=== PATIENT | female | born 1975 | race Caucasian/White ===

== ENCOUNTER 2018-06-07 14:15 | Outpatient (REF) | payer OTHER, SELFPAY | END 2018-06-07 14:16 | LOC: LBN 14:15 | PROVIDERS: PCP Nurse Practitioner; Visit Provider Obstetrics & Gynecology | DX: R30.0 Dysuria (principal) | CPT/HCPCS: 87086 ==

== ENCOUNTER 2021-01-20 19:39 | Outpatient (REF) | payer OTHER, SELFPAY ==
[2021-01-20 22:11] LABS: Hemoglobin A1C 5.5 % (<5.7)
[2021-01-20 22:19] LABS: Anion Gap 11.6 mmol/L (3-11); BUN 17 mg/dL (7-18); CO2 26.4 mmol/L (21.0-32.0); CREATININE 0.8 mg/dL (0.55-1.02); Calcium 9.1 mg/dL (8.5-10.1); Calculated LDL 134 mg/dL (<100); Chloride 104 mmol/L (98-107); Cholesterol 236 mg/dL (<200); Glucose 103 mg/dL (74-106); HDL Cholesterol 48 mg/dL (40-60); Sodium 142 mmol/L (136-145); TSH (W/Ref FT4) 1.02 uIU/mL (0.36-3.74); Triglyceride 272 mg/dL (<150)
== END 2021-01-20 19:40 | disposition home or self-care (01) ==
LOC: NCHCN 19:39
PROVIDERS: PCP Nurse Practitioner; Visit Provider Family Medicine
DX: Z13.220 Encounter for screening for lipoid disorders (principal); I10 Essential (primary) hypertension; Z86.32 Personal history of gestational diabetes
CPT/HCPCS: 80048; 80061; 83036; 84443

== ENCOUNTER 2021-05-22 17:08 | Outpatient (REF) | payer OTHER, SELFPAY | END 2021-05-22 17:09 | disposition home or self-care (01) | LOC: LBN 17:08 | PROVIDERS: PCP Nurse Practitioner; Visit Provider Physician Assistant Medical | DX: R10.30 Lower abdominal pain, unspecified (principal) | CPT/HCPCS: 87077; 87086; 87186 ==

== ENCOUNTER 2023-05-15 13:35 | Emergency (ER) | payer OTHER, SELFPAY ==
--- NOTE | 2023-05-15 | DI.CT_ITS ---
Exam(s) CT LOWER EXTREMITY LT WO EXAM: CT LOWER EXTREMITY LT WO CLINICAL HISTORY: eval midfoot fractures, lisfranc injury. TECHNIQUE: Imaging Protocol: Axial computed tomography images with coronal and sagittal reformatted images were created and reviewed. CONTRAST MATERIAL: Intravenous: Omnipaque 350 Contrast volume:structured data in ml Contrast route:IV - COMPARISON: CR,XR XR ANKLE LT COMPLETE from 05/15/2023 CR,XR XR FOOT LT COMPLETE from 05/15/2023 FINDINGS: Bones: There is a markedly comminuted fracture at the base of the 2nd metatarsal. A tiny fracture fr agment seen at the inferior aspect of the 2nd cuneiform. Small fracture is noted at the lateral aspe ct the 3rd cuneiform and lateral aspect of the cuboid. Small fracture fragment from the infra medial base of the 4th metatarsal. Joints: Bony alignment is satisfactory. No evidence of Lisfranc joint disruption. No cellulitic or o steomyelitic changes are identified. There is no joint space narrowing or cystic degeneration seen. No lytic or sclerotic lesions are identified. Soft Tissues: Swelling greatest at dorsum of foot. IMPRESSION: Markedly comminuted fracture at the base of the 2nd metatarsal. Small fracture fragments also noted at the distal 2nd cuneiform, lateral 3rd cuneiform and lateral cuboid. Small fracture inferomedial b ase the 4th metatarsal. RADIATION DOSE DELIVERED: 294.31mGy.cm Total DLP DATA REPOSITORY: All CT scans at this facility are submitted to the National Radiology Data Registry (NRDR) Dose Index Registry (DIR) with the [employer] (A[employer]). RADIATION OPTIMIZATION: All CT scans at this facility use at least one of these dose optimization te chniques: automated exposure control; mA and/or kV adjustment per patient size (includes targeted exa ms where dose is matched to clinical indication); or iterative reconstruction.
[2023-05-15 13:43] VITALS: BP 127/74; PULSE 85; RESP 18; TEMP 36.6; O2SAT 97
--- NOTE | 2023-05-15 15:00 | DI.RAD_ITS ---
Exam(s) XR ANKLE LT COMPLETE EXAM: XR ANKLE LT COMPLETE . CLINICAL HISTORY: Fall, lateral swelling. TECHNIQUE: 2D digital imaging was performed. COMPARISON: No exams were available for comparison FINDINGS: 3 views there is no evidence of ankle fracture or widening of the ankle mortise. Talar dome unremarkable. There is a comminuted fracture of the base the 2nd metatarsal noted. Lisfranc joint area. IMPRESSION: Lisfranc joint fracture base of 2nd metatarsal. See separate foot film dictation. No fracture seen at the level of the ankle. DATA REPOSITORY: RADIATION DOSE DELIVERED:
--- NOTE | 2023-05-15 15:00 | DI.RAD_ITS ---
Exam(s) XR FOOT LT COMPLETE EXAM: XR FOOT LT COMPLETE CLINICAL HISTORY: Fall lateral foot pain. TECHNIQUE: 2D digital imaging was performed. COMPARISON: No exams were available for comparison FINDINGS: 3 views There is comminuted fracture of the base of the 2nd metatarsal. This is Lisfranc joint. Possible reeves btle fracture of the adjacent base of the 3rd metatarsal. Other metatarsals appear intact, including the great toe metatarsal. Cannot exclude adjacent middle cuneiform fracture. Overlying soft tissue swelling noted. IMPRESSION: Lisfranc joint fracture/comminuted fracture base of the 2nd metatarsal. Also suspect more subtle fra cture of the base of the 3rd metatarsal. Cannot exclude adjacent middle and lateral cuneiform fractu res. DATA REPOSITORY: RADIATION DOSE DELIVERED:
--- NOTE | 2023-05-15 15:13 | ED.GENADUL_ITS ---
Discharge Plan Discharge Details Chief Complaint: Orthopedic Primary Care Provider: Unknown,Unknown ED Provider: Armando Cade Home Meds and New Rx's Prescriptions: No Action Advil PM Liqui-Gels 200-25 mg capsule 1 cap PO QHS PRN melatonin 3 mg capsule 9 mg PO HS PRN mirtazapine 30 mg tablet 30 mg PO QHS Qty: 90 2RF lisinopril 40 mg tablet 40 mg PO DAILY Qty: 90 3RF amitriptyline 10 mg tablet 10 mg PO QHS Qty: 90 4RF pregabalin 75 mg capsule 75 mg PO DAILY Qty: 90 4RF Medical Decision Making Patient presenting to the emergency department for chief complaint of left ankle injury. She states that she was getting out of bed and starting to walk when she had a significant inversion injury to the left foot and ankle. Patient denies any other injury or trauma, syncope, head injury open wounds. Physical exam shows significant lateral ankle swelling with diffuse soft tissues tenderness, tenderness to the fifth metatarsal specifically at the base pulses are normal intact, normal intact cap refill, painful but full range of motion of foot, due to patient reporting severe pain she is unwilling to perform any range of motion of the ankle at this time. We will give patient ibuprofen and perform radiological imaging. HPI General Mode of arrival: wheelchair . Date/Time Provider Initiated Documentation: 05/15/23 15:05 . Limitations to Documentation: no limitations . Information obtained by: patient and RN notes reviewed . History of Present Illness 48 year old F presents to the emergency department with the chief complaint of Left foot and ankle injury, described as moderate and severe, with intensity rated at 8. Quality is described as sharp, and is localized to the left and lower extremity. Patient reports no radiation. Patient started experiencing this hour(s) (6) and it has been constant. No relieving factors improve symptom(s), No exacerbating factors reported . Patient notes no other symptoms.. Patient did receive the following treatments prior to ar rival, none Related Data Home Medications Medication Instructions Recorded Confirmed ibuprofen 200 mg-diphenhydramine 1 cap PO QHS PRN 09/15/21 HCl 25 mg capsule (Advil PM Liqui-Gels) melatonin 3 mg capsule 9 mg PO HS PRN 09/15/21 lisinopril 40 mg tablet 40 mg PO DAILY #90 tabs 12/14/21 mirtazapine 30 mg tablet 30 mg PO QHS #90 tabs 12/14/21 amitriptyline 10 mg tablet 10 mg PO QHS #90 tabs 12/13/22 pregabalin 75 mg capsule 75 mg PO DAILY #90 caps 01/14/23 Previous Rx's Medication Instructions Recorded lisinopril 40 mg tablet 40 mg PO DAILY #90 tabs 12/14/21 mirtazapine 30 mg tablet 30 mg PO QHS #90 tabs 12/14/21 amitriptyline 10 mg tablet 10 mg PO QHS #90 tabs 12/13/22 pregabalin 75 mg capsule 75 mg PO DAILY #90 caps 01/14/23 Allergies Allergy/AdvReac Type Severity Reaction Status Date / Time No Known Drug Allergies Allergy Verified 09/03/21 11:33 duloxetine [From Cymbalta] AdvReac Intermediate dizzy, Verified 09/15/21 14:24 nausea, headache General Stated Complaint: Orthopedic MONICA: 3 Review of Systems Constitutional Constitutional: Denies headache(s) ENT Ears, Nose, Mouth, and Throat: Denies headache(s) Cardiovascular Cardiovascular: Denies syncope Musculoskeletal Musculoskeletal: Reports as per HPI, Reports arthralgias, Reports joint swelling and Reports limited range of motion Integumentary/Breasts Skin/Breast: Denies wounds Neurologic Neurologic: Denies syncope, Denies headache(s) and Denies paresthesias PFSH All Active Problems SARS-CoV-2 positive (Acute ~07/2022) Hx gestational diabetes (Acute 03/03/18) Bladder pain (Acute) Dysuria (Acute) Depression (Chronic 04/08/17) Scoliosis (Acute 04/08/17) Plantar fasciitis (Acute 04/08/17) HTN (hypertension) (Acute 06/21/17) CEM (generalized anxiety disorder) (Acute 05/09/17) Fibromyalgia (Acute 04/08/17) Elevated LDL cholesterol level (Acute 04/08/17) Chronic low back pain (Acute 04/08/17) Chronic constipation (Acute 08/26/17) Medical History Arthritis of right knee BMI 45.0-49.9, adult Bullous pemphigoid (03/02/18) resolved. with p.o. steroids Fibromyalgia Hx gestational diabetes Hypertension Insulin dependent gestational diabetes mellitus (GDM), antepartum (08/30/17) Pemphigoid (01/24/18) 2018. Rx with steriods. No sequelae. Recurrent cystitis Surgical History section 1994, x3 1998, 2001, 2018 Family History Mother MVP (mitral valve prolapse) Father Diabetes Borderline Essential hypertension Paternal Grandfather , Heart Attack Essential hypertension Heart disease Sister Diabetes Borderline Grandfather Neoplasm prostate Social History Smoking/Tobacco Use Status: Never Smoking risk assessment performed?: Yes Alcohol Intake: never Drug use: Never Substance use type: does not use Number of Children: 3 Seatbelt use: always Drive intox or ride w/intox drivers license examiner: No Working smoke detector in home: Yes Fire extinguisher in home: Yes Carbon monox detector in home: Yes Do you feel safe in your relationship?: Yes Exam Const General: cooperative, no acute distress and not ill appearing Orientation: alert, awake and oriented x3 HENMT Mouth: moist mucous membranes Resp Effort & Inspection: normal respiratory effort, able to speak in complete sentences and no respiratory distress Cardio Rate: regular rate Rhythm: regular rhythm Pulses: normal peripheral pulses Skin General skin exam: no rashes or lesions noted Neuro General: patient alert, patient awake, patient oriented x3, moves all extremities and no focal motor deficits Sensory Exam: no sensory deficits noted Extrem General: normal exam except as noted Left lower extremity: ankle Details: tenderness Location: of the lateral malleolus and anterolaterally, swelling Details: laterally and abnormal ROM Details: pain with active ROM and foot Details: tenderness Location: of the base of the 5th metatarsal and abnormal ROM of toe (full ROM but painful) Details: pain with active ROM; no abrasions, no lacerations and no ecchymosis Course Vital Signs Vital signs: Vital Signs Temperature 36.6 C 05/15/23 13:43 Pulse 85 05/15/23 13:43 Respiratory Rate 18 05/15/23 13:43 Blood Pressure 127/74 05/15/23 13:43 Pulse Oximetry 97 05/15/23 13:43 Temperature 36.6 C 05/15/23 13:43 Temperature Source Oral 05/15/23 13:43 Pulse 85 05/15/23 13:43 Respiratory Rate 18 05/15/23 13:43 Blood Pressure 127/74 05/15/23 13:43 Pulse Oximetry 97 05/15/23 13:43 Oxygen Delivery Method Room Air 05/15/23 13:43 Oxygen Flow Rate 0 05/15/23 13:43 Pain Level 5 05/15/23 13:43 Sign Out Sign Out Data: Sign Out Comment: Patient signed out pending radiologist interpretation of imaging, interventions and treatments as needed and and disposition Last updated by Armando Cade NP at 05/15/23 15:37
[2023-05-15] MEDS: Ibuprofen 600 MG TAB PO (15:15)
--- NOTE | 2023-05-15 15:57 | DI.VRAD_ITS ---
PROCEDURE INFORMATION: Exam: XR Left Foot Exam date and time: 05/15/2023 3:31 PM Age: 48 years old Clinical indication: Left; Patient HX: Fall, lateral foot pain TECHNIQUE: Imaging protocol: Radiologic exam of the left foot. Views: 3 or more views. COMPARISON: No relevant prior studies available. FINDINGS: Bones/joints: There appears to be a comminuted impacted fracture of the base of the 2nd metatarsal as well as 3rd metatarsal involvement proximally. Third cuneiform involvement is not excludable. Soft tissues: There is fairly diffuse soft tissue swelling particularly involving the dorsal level. IMPRESSION: Fractures of the base of the 2nd and 3rd metatarsal bones with possible 3rd cuneiform involvement. Dictated and Authenticated by: Lashon Bustillos MD. Ordering:SHIRA Roberts MD
--- NOTE | 2023-05-15 16:02 | DI.VRAD_ITS ---
PROCEDURE INFORMATION: Exam: XR Left Ankle Exam date and time: 05/15/2023 3:32 PM Age: 48 years old Clinical indication: Pain; Ankle; Left; Patient HX: Fall, lateral swelling TECHNIQUE: Imaging protocol: Radiologic exam of the left ankle. Views: 3 or more views. COMPARISON: CR XR FOOT LT COMPLETE 05/15/2023 3:31 PM FINDINGS: Bones/joints: There are fractures of the 2nd and apparently 3rd metatarsals proximally. Fifth metatarsal fractures suspected. The ankle is intact without evidence for fracture. The distal fibula is not optimally characterized due to bony overlap. Soft tissues: Normal. IMPRESSION: Fractures of the 2nd 3rd and possibly 5th metatarsals. No definite evidence for ankle fracture. Dictated and Authenticated by: Lashon Bustillos MD. Ordering:SHIRA Roberts MD
--- NOTE | 2023-05-15 17:22 | DI.VRAD_ITS ---
PROCEDURE INFORMATION: Exam: CT Left Lower Extremity With Contrast, Foot Exam date and time: 05/15/2023 5:04 PM Age: 48 years old Clinical indication: Other: Eval midfoot fractures, lisfranc injury TECHNIQUE: Imaging protocol: CT of the left lower extremity with intravenous contrast was performed. Exam focused on the foot. Radiation optimization: All CT scans at this facility use at least one of these dose optimization techniques: automated exposure control; mA and/or kV adjustment per patient size (includes targeted exams where dose is matched to clinical indication); or iterative reconstruction. COMPARISON: CR XR FOOT LT COMPLETE 05/15/2023 3:31 PM FINDINGS: Bones/joints: Alignment is grossly anatomic without evidence for Lisfranc disruption. There are fractures of the base of the 2nd metatarsal with marked comminution. There is a fracture of the lateral aspect of the 3rd cuneiform, probable subtle 4th metatarsal avulsion fracture and minimal fracture of the cuboid, avulsion type. Soft tissues: There is soft tissue swelling in the dorsum of the foot. IMPRESSION: Multiple fractures particularly involving the base of the 2nd metatarsal with 3rd cuneiform, 4th metatarsal and cuboid involvement. No evidence for Lisfranc dislocation. Dictated and Authenticated by: Lashon Bustillos MD. Ordering:JONI Haynes MD
--- NOTE | 2023-05-21 15:05 | NUR.NOTE ---
Nursing Note: Nani Rosenberg called asking if there was a prescription in chart for opiates. They have one there, but have a message that it was cancelled. Reviewed the chart with Nettie Luna RN and there is no prescription for opiates in the chart. She was dispensed with 4 from ED only. They will tell here that they do not have a prescription there.
== END 2023-05-15 18:24 | disposition home or self-care (01) ==
PROVIDERS: Emergency Provider Physician Assistant
DX: S92.322A Displaced fracture of second metatarsal bone, left foot, initial encounter for closed fracture (principal); S92.332A Displaced fracture of third metatarsal bone, left foot, initial encounter for closed fracture; S92.352A Displaced fracture of fifth metatarsal bone, left foot, initial encounter for closed fracture; X58.XXXA Exposure to other specified factors, initial encounter
CPT/HCPCS: 99284; 73610; 73630; 73700

== ENCOUNTER 2023-05-19 10:08 | Outpatient (CLI) | payer OTHER, SELFPAY ==
[2023-05-19 10:23] LABS: Abs Immature Grans 0.18 10^3/uL (0.0-0.06); Absolute Basophil Count 0.07 10^3/uL (0.0-0.2); Absolute Lymphocyte Count 2.15 10^3/uL (1.2-3.4); Absolute Monocyte Count 0.51 10^3/uL (0.1-0.8); Absolute Neutrophil Count 5.82 10^3/uL (1.2-6.7); Basophils % 0.8; Eosinophils % 2.2; HGB 12.2 g/dL (11.2-15.7); Lymphocytes % 24.1; MCH 27.9 pg (27.0-33.0); MCHC 32.1 % (32.0-36.0); MCV 87 fL (80-95); Monocytes % 5.7; Neutrophils % 65.2; Platelet Count 544 10^3/uL (130-400); RBC 4.38 10^6/uL (3.93-5.22); RDW 14.2 % (11.7-14.6); WBC 8.93 10^3/uL (4.4-10.8)
[2023-05-19 10:49] LABS: ALT 18 U/L (14-59); AST 19 U/L (15-37); Albumin 3.4 g/dL (3.4-5.0); Alkaline Phosphatase 79 U/L (46-116); Anion Gap 11.9 mmol/L (3-11); BUN 22 mg/dL (7-18); Bilirubin, Total 0.4 mg/dL (0.2-1.0); CO2 25.1 mmol/L (21.0-32.0); CREATININE 1.2 mg/dL (0.55-1.02); Calcium 9.4 mg/dL (8.5-10.1); Calculated LDL 153 mg/dL (<100); Chloride 104 mmol/L (98-107); Cholesterol 219 mg/dL (<200); Estimated GFR 55.84 (mL/min/1.73m2); Glucose 111 mg/dL (74-106); HDL Cholesterol 33 mg/dL (40-60); Sodium 141 mmol/L (136-145); Total Protein 7.9 g/dL (6.4-8.2); Triglyceride 168 mg/dL (<150)
== END 2023-05-19 10:09 | disposition home or self-care (01) ==
LOC: LBO 10:08
PROVIDERS: PCP Family Medicine; Visit Provider Family Medicine
DX: Z00.00 Encounter for general adult medical examination without abnormal findings (principal); K21.9 Gastro-esophageal reflux disease without esophagitis; I10 Essential (primary) hypertension; F41.8 Other specified anxiety disorders; M79.7 Fibromyalgia
CPT/HCPCS: 36415; 80053; 80061; 85025

== ENCOUNTER 2023-06-03 09:48 | Outpatient (CLI) | payer OTHER, SELFPAY ==
--- NOTE | 2023-06-03 11:24 | DI.RAD_ITS ---
Exam(s) XR FOOT LT COMPLETE EXAM: XR FOOT LT COMPLETE CLINICAL HISTORY: LEFT FOOT FX. TECHNIQUE: 2D digital imaging was performed. COMPARISON: CR,XR XR FOOT LT COMPLETE from 05/15/2023 FINDINGS: 3 views Fracture site at the base of the 2nd metatarsal is again noted. On the oblique view there is a suggestion of some further displacement of the lateral fracture fragme nt at this level. Cannot exclude fracture of the base of the adjacent 3rd metatarsal. No diastasis of the Lisfranc joint evident. Bases of the 4th and 5th metatarsals are intact and not dislocated re lative to the articulation with the adjacent cuboid. IMPRESSION: As above. Recommend follow-up CT scan for new knee a faria of position of fracture fragments at the 2 nd and 3rd tarsometatarsal joints. DATA REPOSITORY: RADIATION DOSE DELIVERED:
== END 2023-06-03 09:49 | disposition home or self-care (01) ==
LOC: DIORS 09:48
PROVIDERS: PCP Family Medicine; Referring Provider Family Medicine; Visit Provider Student in an Organized Health Care Education/Training Program
DX: S92.321A Displaced fracture of second metatarsal bone, right foot, initial encounter for closed fracture (principal); X58.XXXA Exposure to other specified factors, initial encounter
CPT/HCPCS: 73630

== ENCOUNTER 2023-07-01 12:00 | Outpatient (CLI) | payer OTHER, SELFPAY ==
--- NOTE | 2023-07-01 11:50 | DI.RAD_ITS ---
Exam(s) XR FOOT LT COMPLETE EXAM: XR FOOT LT COMPLETE CLINICAL HISTORY: eval L Lisfranc frx. TECHNIQUE: 2D digital imaging was performed of the left foot. Three images were obtained. AP, obli que and lateral views were obtained. COMPARISON: CR XR FOOT LT COMPLETE from 06/03/2023 FINDINGS: BONES: There is again seen a fracture through the base of the 2nd metatarsal. There is displacement of the fracture which appears similar compared to the examination from 06/03/2023. There also fracture fragments seen near the distal aspects of the 2nd and 3rd cuneiforms. No bony destructive lesion is seen. JOINTS: No dislocation present. SOFT TISSUE: There is soft tissue swelling of the foot. IMPRESSION: The visualized fractures through the cuneiform and the base of the 2nd metatarsal appears stable. DATA REPOSITORY: RADIATION DOSE DELIVERED:
== END 2023-07-01 12:01 | disposition home or self-care (01) ==
LOC: DIORS 12:03
PROVIDERS: PCP Family Medicine; Referring Provider Family Medicine; Visit Provider Student in an Organized Health Care Education/Training Program
DX: S92.321A Displaced fracture of second metatarsal bone, right foot, initial encounter for closed fracture (principal); X58.XXXA Exposure to other specified factors, initial encounter; Z47.89 Encounter for other orthopedic aftercare
CPT/HCPCS: 73630

== ENCOUNTER 2023-08-05 11:20 | Outpatient (CLI) | payer OTHER, SELFPAY ==
--- NOTE | 2023-08-05 11:15 | DI.RAD_ITS ---
Exam(s) XR FOOT LT COMPLETE EXAM: XR FOOT LT COMPLETE CLINICAL HISTORY: f/u L FT FX. TECHNIQUE: 2D digital imaging was performed. Three views. COMPARISON: CT CT LOWER EXTREMITY LT WO from 05/15/2023 CR XR FOOT LT COMPLETE from 06/03/2023 CR XR FOOT LT COMPLETE from 07/01/2023 FINDINGS: There has been no change in the alignment of the fractures of the bases of the 2nd through 4th metata rsals. There is some disuse osteopenia in this region. No new findings. There has been some increa sed healing from prior exam. DATA REPOSITORY: RADIATION DOSE DELIVERED:
== END 2023-08-05 11:21 | disposition home or self-care (01) ==
LOC: DIORS 11:20
PROVIDERS: PCP Family Medicine; Visit Provider Student in an Organized Health Care Education/Training Program
DX: S92.321D Displaced fracture of second metatarsal bone, right foot, subsequent encounter for fracture with routine healing (principal); X58.XXXD Exposure to other specified factors, subsequent encounter
CPT/HCPCS: 73630

== ENCOUNTER 2023-09-15 11:04 | Outpatient (CLI) | payer OTHER, SELFPAY ==
--- NOTE | 2023-09-15 11:00 | DI.RAD_ITS ---
Exam(s) XR FOOT LT COMPLETE EXAM: XR FOOT LT COMPLETE CLINICAL HISTORY: left foot fracture. TECHNIQUE: 2D digital imaging was performed. Three views. COMPARISON: CR XR FOOT LT COMPLETE from 08/05/2023 FINDINGS: BONES: There has been no change in the alignment of the fracture at the base of the 2nd metatarsal. Disuse osteopenia. No bony destructive lesion is seen. JOINTS: No dislocation present. SOFT TISSUE: Dorsal swelling. IMPRESSION: Stable fracture alignment. DATA REPOSITORY: RADIATION DOSE DELIVERED:
== END 2023-09-15 11:05 | disposition home or self-care (01) ==
LOC: DIORS 11:04
PROVIDERS: PCP Family Medicine; Visit Provider Physician Assistant
DX: S92.322D Displaced fracture of second metatarsal bone, left foot, subsequent encounter for fracture with routine healing (principal); X58.XXXD Exposure to other specified factors, subsequent encounter
CPT/HCPCS: 73630

== ENCOUNTER → 2024-04-23 01:53 | Outpatient (CLI) | payer OTHER, SELFPAY ==
--- NOTE | 2024-04-23 | DI.RAD_ITS ---
Exam(s) XR CHEST 2V PA LATERAL EXAM: XR CHEST 2V PA LATERAL CLINICAL HISTORY: CHEST PAIN, R07.9 TECHNIQUE: 2D digital imaging was performed. Two views. COMPARISON: No exams were available for comparison FINDINGS: HEART: Normal size. Aorta: Not dilated. PULMONARY VASCULATURE: Normal. MEDIASTINUM: Unremarkable. LUNGS: Clear. PLEURAL SPACE: No pleural effusion or pneumothorax. BONE:Unremarkable for age. SOFT TISSUES: Unremarkable. IMPRESSION: No acute abnormality. DATA REPOSITORY: RADIATION DOSE DELIVERED:
--- NOTE | 2024-04-23 | DI.MAMMO_ITS ---
Exam(s) MAMMO SCREENING EXAM: MAMMO SCREENING CLINICAL HISTORY: SCREENING, Z12.31 TECHNIQUE: Mammograms were interpreted according to the usual protocol including computer analysis w Volve CAD system, tomosynthesis and C-view imaging. COMPARISON: No exams were available for comparison. Baseline examination. FINDINGS: The breasts are composed of scattered fibroglandular densities, Breast Density category B. No suspicious masses or suspicious microcalcifications are seen. No skin thickening or abnormal axillary lymph nodes are seen. IMPRESSION: BI-RADS Category 1, Negative mammogram Yearly screening mammography is recommended. Breast Density - Category B, scattered fibroglandular densities. A negative radiographic report should not delay biopsy if a dominant or clinically suspicious mass is present. Up to ten percent of cancers are not identified on mammography. A negative report may reinforce clinical impression. Adenosis and dense breasts may obscure an underlying neoplasm. False positive reports average 6 to 10%. Patient will receive a letter notifying them of these results.
--- NOTE | 2024-04-23 18:41 | DI.VRAD_ITS ---
PROCEDURE INFORMATION: Exam: XR Chest Exam date and time: 04/23/2024 5:42 PM Age: 49 years old Clinical indication: Chest wall pain; Patient HX: Chest pain TECHNIQUE: Imaging protocol: Radiologic exam of the chest. Views: 2 views. COMPARISON: No relevant prior studies available. FINDINGS: Lungs: Normal pulmonary expansion. Pulmonary vasculature grossly normal. No gross pulmonary infiltrates or edema pattern. Pleural spaces: No pleural effusion. No pneumothorax. Heart/Mediastinum: Heart size normal. No tracheal/mediastinal shift. Bones/joints: No acute osseous abnormalities are identified. Moderate thoracic spondylosis. IMPRESSION: No acute thoracic process. Dictated and Authenticated by: Néstor Sampson MD. Ordering:ELLIS Rosenthal MD
== END ==
PROVIDERS: PCP Family Medicine; Visit Provider Family Medicine
DX: R07.9 Chest pain, unspecified (principal); Z12.31 Encounter for screening mammogram for malignant neoplasm of breast
CPT/HCPCS: 77063; 77067; 71046

== ENCOUNTER 2024-09-26 15:47 | Outpatient (REF) | payer OTHER, SELFPAY ==
--- OUTSIDE RECORDS SUMMARY | 2024-09-26 16:00 | XMS_ITS | Encounter Summary ---
Author Organization [facility] [place] [address] Care Team Providers Care Yarding Engineer Name Role Phone Amelia Dillardyce Opal CABRAL Primary Care Provider [phone] Reason for Visit * Reason Onset Date Comments Results 08/11/2017 Encounter Details Date Type Department Care Team (Late st Contact Info) Description 08/11/2017 Telephone Obstetrics [place] [id number] Leena Chao, [facility] DR OBSTETRICS & [place] [address] Results Social History Tobacco Use Types Packs/Day Years Used Date Smoking Tobacco: Unknown Smokeless Tobacco: Never Comments Yes Sex and Gender Information Value Date Recorded Sex Assigned at Not on file Gender Identity Not on file Sexual Orientation Not on file documented as of this encounter Miscellaneous Notes * Telephone Encounter - Leena Chao, [facility] - 08/11/2017 9:08 AM EDT Genetic Counseling Telephone Note Renee St opted for cell-free DNA aneuploidy screening with the Fargo Test on 2016. I informed Renee St of the following results by phone today: Fargo Test: Condition Result Probability Trisomy 21 Low risk Less than 1/10,000 Trisomy 18 Low risk Less than 1/10,000 Trisomy 13 Low risk Less than 1/10,000 Monosomy X Sex Chromosome Aneuploidy Panel Low risk Less than 1/100 Sex Male >99% The Fargo Test is a type of cell-free DNA screening for aneuploidy. I reminded Renee that Fargo is a screening test for a limited number of chromosomes and that amniocentesis remains anoption as the diagnostic test for chromosome abnormalities. She declines diagnostic testing at this time. Renee was also advised to discuss a morphology ultrasound at 18 to 20 weeks withher provider, and to correlate sex. The laboratory report will be scanned into [facility]. A letter will be mailed to the referring provider's office with a copy of the report. documented in this encounter Plan of Treatment Not on file documented as of this encounter Visit Diagnoses Not on filedocumented in this encounter Care Teams Yarding Engineer Relationship Specialty Start Date End Date Ayaka Dillard APRN [address] [place] [address] PCP - General Internal Medicine 08/04/17 documented as of this encounter
--- OUTSIDE RECORDS SUMMARY | 2024-09-26 16:00 | XMS_ITS | Clinical Summary ---
Author Organization [facility] Address [facility] [place] [address] Care Team Providers Care Master Printer Name Role Phone Ayaka Dillard APRN Primary Care Provider [phone] Allergies No known active allergies Medications Medication Sig Dispensed Refills Start Date End Date Status labetalol (NORMODYNE) 100 mg Tablet 3 07/07/2017 Active PHENADOZ 25 mg Suppository 2 07/27/2017 Active metFORMIN (GLUCOPHAGE) 1,000 mg Tablet Take 1,000 mg by mouth 2 times daily (with meals). Active vitamin with orkligtl-Xg-[id number]-FA Tablet Take by mouth. Active ondansetron (ZOFRAN) 4 mg Tablet Take 4 mg by mouth every 8 hours as needed for Nausea. Active promethazine (PHENERGAN) 25 mg Tablet Take 25 mg by mouth every 6 hours as needed for Nausea. Active metFORMIN (GLUCOPHAGE) 500 mg Tablet Take 1 tablet by mouth 2 times daily (with meals). 60 tablet 12 08/04/2017 Active Additional Information Patient not taking.Reported on 01/23/2018 gabapentin (NEURONTIN) 400 mg Capsule 01/05/2018 Active ibuprofen (ADVIL;MOTRIN) 600 mg Tablet TAKE ONE TABLET EVERY 6 HOURS NEEDED FOR ABDOMINAL PAIN 1 01/20/2018 Active oxyCODONE-acetaminop hen (PERCOCET) 5-325 mg Tablet TAKE 1 TABLET BY MOUTH EVERY 6 HOURS NEEDED 0 01/21/2018 Active predniSONE (DELTASONE) 20 mg TabletIndications:Pe mphigoid Take by mouth: 60mg each morning x 5 days, then 40mg each morning x 5 days, then 20mg each morning x 5 days 30 tablet 01/23/2018 Active augmented betamethasone dipropionate (DIPROLENE-AF) 0.05 % CreamIndications:Pem phigoid Apply to itchy/affected areas twice daily as needed. Use for up to 2 weeks, then take 1 week off; repeat as needed. 50 g 2 01/23/2018 Active Active Problems Problem Noted Date Diagnosed Date IUD failure, 08/04/2017 Overview (08/04/2017): Removed from cervix Family History Medical History Relation Comments Diabetes Father Hypertension Father Diabetes Maternal Grandmother Coronary Artery Disease Paternal Grandfather Hypertension Paternal Grandfather Diabetes Sister Relation Status Comments Father Maternal Grandmother Paternal Grandfather Sister Social History Tobacco Use Types Packs/Day Years Used Date Smoking Tobacco: Unknown Smokeless Tobacco: Never Alcohol Use Standard Drinks/Week Comments No 0 (1 standard drink = 0.6 oz pur e alcohol) Sex and Gender Information Value Date Recorded Sex Assigned at Not on file Gender Identity Not on file Sexual Orientation Not on file Last Filed Vital Signs Vital Sign Reading Time Taken Comments Blood Pressure 142/76 08/04/2017 9:58 AM EDT Pulse 83 08/04/2017 9:58 AM EDT Temperature 37.1 ??C (98.7 ??F) 08/04/2017 9:58 AM ED T Respiratory Rate - - Oxygen Saturation 99% 08/04/2017 9:58 AM EDT Inhaled Oxygen Concentration - - Weight 112.7 kg (248 lb 6.4 oz) 08/04/2017 9:58 AM EDT Height 157.5 cm (5' 2) 08/04/2017 9:58 AM EDT Body Mass Index 45.43 08/04/2017 9:58 AM EDT Plan of Treatment Health Maintenance Due Date Last Done Comments CT Colonography 1975 Colonoscopy 1975 Colorectal Cancer Screening 1975 FIT DNA 1975 FIT 1975 Sigmoidoscopy (10 year) with FIT yearly 1975 Sigmoidoscopy 1975 HIV screen 1993 Hepatitis C Screening 1993 Hepatitis B vaccine (0-59 yrs) (1) 1994 Tetanus/Diphtheria/Pertussis Vaccines (1 - Tdap) 04/07 HPV test 2005 PAP Smear 2005 Breast Cancer Share Decision Needed 2015 Breast Cancer screening 2015 Covid-19 Vaccine ( season) 2024 Influenza (Flu) vaccine (1 o f 1 - Influenza standard series) 07/01/2024 Care Teams Master Printer Relationship Specialty Start Date End Date Ayaka Dillard APRN [address] [place] [address] PCP - General Internal Medicine 08/04/17
--- OUTSIDE RECORDS SUMMARY | 2024-09-26 16:00 | XMS_ITS | Encounter Summary ---
Author Organization [facility]ly [facility] Address [facility] [place] [address] Care Team Providers Care Manager Ecommerce Name Role Phone Ayaka Dillard Opal CABRAL Primary Care Provider [phone] Encounter Details Date Type Department Care Team (Late st Contact Info) Description 01/31/2018 Telephone Dermatology at [facility] [address] [place] [address] Kika Jackson MD [facility] DR [address] [place] [address] Social History Tobacco Use Types Packs/Day Years Used Date Smoking Tobacco: Unknown Smokeless Tobacco: Never Alcohol Use Standard Drinks/Week Comments No 0 (1 standard drink = 0.6 oz pur e alcohol) Comments Yes Sex and Gender Information Value Date Recorded Sex Assigned at Not on file Gender Identity Not on file Sexual Orientation Not on file documented as of this encounter Miscellaneous Notes * Telephone Encounter - Kika Jackson - 01/31/2018 12:02 PM EDT Called Ms. St at 12:02 PM on 01/31/18 to discuss results of her biopsy, which revealed the following: ADDENDUM DISCUSSION Final Impression: - Linear basement membrane IgG and C3 deposition Direct IF Findings, Interpretation Positive. Specimen Processing A punch biopsy was received in a tube of Reddy ?? 's transport medium. Frozen sections, ??cut at 4 microns, were stained by direct immunofluorescence (IF). Sections were ??treated with fluorescein labeled antibodies to the following immunoreactants: IgG, ??IgA, IgM, fibrinogen and C3. The antibody to albumin is used as a negative control. Immune Deposits, Objective Findings This biopsy includes skin with epidermis and dermis. Direct IF studies of this skin ??biopsy specimen reveal strong, linear basement membrane C3 deposition and faint-to- moderate, discontinuous linear basement membrane IgG deposition. ? Surgical Pathology DIAGNOSIS A. Skin, right abdomen inferior, punch biopsy: - Subepidermal split with eosinophils (see discussion) B. Skin, right abdomen superior, punch biopsy for DIF: - ??DIF pending - results will follow in an addendum No answer. 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 Patient declined scheduling follow-up appointment when Alison called her yesterday becauseshe was doing well. Encouraged patient to call back if condition worsens or does not improve. KIKA JACKSON MD Resident in Dermatology [facility] documented in this encounter Plan of Treatment Not on file documented as of this encounter Visit Diagnoses Not on filedocumented in this encounter Care Teams Manager Ecommerce Relationship Specialty Start Date End Date Ayaka Dillard APRN [address] [place] [address] PCP - General Internal Medicine 08/04/17 documented as of this encounter
--- OUTSIDE RECORDS SUMMARY | 2024-09-26 16:00 | XMS_ITS | Encounter Summary ---
Author Organization [facility] [place] [address] Care Team Providers Care Macerator Operator Name Role Phone Ayaka Dillard Opal CABRAL Primary Care Provider [phone] Reason for Visit * Reason Comments Skin Check Skin Lesion Encounter Details Date Type Department Care Team (Late st Contact Info) Description 01/23/2018 4:30 PM EDT Office Visit Dermatology at [facility] [address] [place] [address] Kika Jackson MD [facility] [address] [facility] [address] Pemphigoid Social History Tobacco Use Types Packs/Day Years Used Date Smoking Tobacco: Unknown Smokeless Tobacco: Never Alcohol Use Standard Drinks/Week Comments No 0 (1 standard drink = 0.6 oz pur e alcohol) Comments Yes Sex and Gender Information Value Date Recorded Sex Assigned at Not on file Gender Identity Not on file Sexual Orientation Not on file documented as of this encounter Patient Instructions * Patient Instructions* Kika Jackson - 01/23/2018 4:30 PM EDT - Take prednisone as follows: Rx: Prednisone taper. 60mg each morning x 5 days, then 40mg each morning x 5 days, then 20mg each morning x 5 days. Reviewed side effects, including but not limited to GI upset, mood change, irritability, difficulty sleeping, increases in blood pressure, increase in blood sugar, thinning of skin and bones, osteonecrosis of the hip. - Use Augmented betamethasone cream for itchy areas - Apply to itchy/affected areas twice daily as needed. Use for up to 2 weeks, then take 1 week off; repeat as needed. - Wound care for biopsy sites below - Contact materials scheduler to inform them that you are taking prednisone. ABOUT YOUR TREATMENTS Your Treatment today: You had a biopsy of your skin (removal of a small piece of tissue for examination under microscope). You had a punch biopsy and suture removal should be completed as discussed with nurse. Wound care Instructions: 1. Keep wound dry and covered for 24 hours then clean area with soap and water. 2. Pat dry completely 3. Cover with Vaseline and a new bandage daily, do this everyday until the wound is healed 4. Sutures to be removed in 10-14 days Please call [phone] if you have questions or concerns * Please allow one or two weeks for the biopsy results to return. *Based on your biopsy results we will either call you or send you a letter with the results. *If in two weeks, you have not heard from us, please feel free to call and request your biopsy results. documented in this encounter Progress Notes * Kika Jackson - 01/23/2018 4:30 PM EDT Images from the original note were not included. DERMATOLOGY - NEW PATIENT NOTE Date of service: 01/23/[address] : 1975, 42 y.o. Chief Complaint: Chief Complaint Patient presents with ??? Skin Check HPI: Renee St is a 42 y.o. female referred by [facility] with the following concerns: Pt presents to the clinic with a blistering eruption. She is a 42-yo F who is 4 days (s/p ). She reports 2 month history of a rash that is present on the hands, wrists, and abdomen. She was treated for scabies (permethrin x2 doses); however, the rash has persisted and has worsened over the past few days. She now has blisters on her hands and abdomen. Some of the lesions are vesicular or eroded. Her hands are swollen and uncomfortable. She was given prednisone in the ED, along with benadryl. She had a baby boy 4 days ago and she has 2 other children that are over 15. She never had this happen after their of them. She was given antibiotic before her . She does feel that herrash has worsened since the of her baby. Since receiving prednisone yesterday she feels that the rash has improved somewhat. Relevant Skin History: - Okay to leave detailed message with results? yes - Skin cancer (including type): none Family History: Melanoma: none Relevant Social History: - - 3 children Meds: Current Outpatient Prescriptions Medication Sig Dispense Refill ??? gabapentin (NEURONTIN) 400 mg Capsule ??? ibuprofen (ADVIL;MOTRIN) 600 mg Tablet TAKE ONE TABLET EVERY 6 HOURS NEEDED FOR ABDOMINAL PAIN 1 ??? oxyCODONE-acetaminophen (PERCOCET) 5-325 mg Tablet TAKE 1 TABLET BY MOUTH EVERY 6 HOURS NEEDED 0 ??? labetalol (NORMODYNE) 100 mg Tablet 3 ??? vitamin with eiixapqe-Ht-Sxja-FA Tablet Take by mouth. ??? PHENADOZ 25 mg Suppository 2 ??? metFORMIN (GLUCOPHAGE) 1,000 mg Tablet Take 1,000 mg by mouth 2 times daily (with meals). ??? ondansetron (ZOFRAN) 4 mg Tablet Take 4 mg by mouth every 8 hours as needed for Nausea. ??? promethazine (PHENERGAN) 25 mg Tablet Take 25 mg by mouth every 6 hours as needed for Nausea. ??? metFORMIN (GLUCOPHAGE) 500 mg Tablet Take 1 tablet by mouth 2 times daily (with meals). (Patient not taking: Reported on 01/23/2018) 60 tablet 12 No current facility-administered medications for this visit. Allergies: No Known Allergies Review of Systems: - General: Feels well. - Skin: No other skin concerns. Examination: - Constitutional: Patient was alert, well-appearing and in no noticeable distress. - Skin: A total body skin exam except for the genitalia was performed. This includes examination ofthe skin of the face, neck, chest, left and right upper and lower extremities, hands, feet, abdomen, back. The buttocks, genitalia, perineum, and perianal areas were not examined. 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 Informed her that the peak serum concentration occurs 2 hours after taking her dose, santino may want to dose the prednisone at the time of a feeding so she avoids nursing during the peak serum concentration. - Patients with pemphigoid gestationis have a slightly increased risk of subsequently developing Graves disease. Plan to discuss with patient upon receiving biopsy results. - Rx: Augmented betamethasone cream - Apply to itchy/affected areas twice daily as needed. Use for up to 2 weeks, then take 1 week off; repeat as needed. - Rx: Prednisone Taper - 60mg each morning x 5 days, then 40mg each morning x 5 days, then 20mg each morning x 5 days. Reviewed side effects, including but not limited to GI upset, mood change, irritability, difficulty sleeping, increases in blood pressure, increase in blood sugar. Procedure: Skin biopsy by punch technique. Location: Specimen A (for H&E): Right abdomen, inferior Specimen B (for DIF): Right abdomen, superior Discussed indications for the procedure and expectations including risks and benefits. Verbal consent obtained. Skin prep with alcohol. Local anesthesia: 1% lidocaine with 1/100,000 epinephrine. A 4 mm punch biopsy to the level of the subcutis was performed. Wound closed with monofilament suture. There were no complications; the patient tolerated the procedure well. The wound was dressed. Post-procedure expectations (including discomfort management), wound care and activity restrictions were reviewed. Follow-up based on pathology results. Suture removal: 10-14 days. Patient to have sutures removed closer to home RTC: 4 weeks for f/u pemphigoid gestationis The following photos were obtained with patient consent: Note initiated by PARVIN DE LUNA LPN. I performed the above scribed service and agree with the accuracy of the documentation in this encounter. Reviewed and signed by KIKA JACKSON MD Resident in Dermatology [facility] Patient seen in conjunction with staff occupational ther: Artur Tovar MD Section of Dermatology [facility] * Artur Tovar III, MD - 01/23/2018 4:30 PM EDT I directly supervised Dr. Kika Jackson during this office visit. Dr. Jackson presented the history and physical exam to me. I then saw and examined this patient with Dr. Jackson. We reviewed the history and pertinent details and I confirmed the physical findings. I agree with the details of the history and physical exam as documented in Dr. Jackson's note. ARTUR TOVAR III, MD Staff Physician * Alison Dumont - 01/23/2018 4:30 PM EDT Called patient to schedule a follow up appointment but she doesn't feel that she needs a follow up appointment at this time. She will call if she decides her condition needs a follow up. documented in this encounter Plan of Treatment Not on file documented as of this encounter Procedures Procedure Name Priority Date/Time Associated Diagnosis Comments SURGICAL PATHOLOGY REPORT Routine 01/23/2018 5:22 PM EDT SPECIMEN TO PATHOLOGY Routine 01/23/2018 5:22 PM EDT Pemphigoid documented in this encounter Results * Surgical Pathology Report (01/23/2018 5:22 PM EDT) Final Diagnosis [id number] ? Location: [facility] The signing pathologist has (i) examined the relevant preparation(s) for the specimen(s) and (ii) rendered or confirmed the diagnosis(es). . ? Addendum ADDENDUM DISCUSSION Final Impression: - Linear basement membrane IgG and C3 deposition Direct IF Findings, Interpretation Positive. Specimen Processing A punch biopsy was received in a tube of Reddy Gil 's transport medium. Frozen sections, cut at 4 microns, were stained by direct immunofluorescence (IF). Sections were treated with fluorescein labeled antibodies to the following immunoreactants: IgG, IgA, IgM, fibrinogen and C3. The antibody to albumin is used as a negative control. Immune Deposits, Objective Findings This biopsy includes skin with epidermis and dermis. Direct IF studies of this skin biopsy specimen reveal strong, linear basement membrane C3 deposition and faint-to- moderate, discontinuous linear basement membrane IgG deposition. Electronically signed by: ??Pepe Viramontes MD Verified: ??01/29/2018 ?Dermatopathologist Performed at: ??-[facility] Dept. of Pathology, [place], [place] ?Surgical Pathology DIAGNOSIS A. Skin, right abdomen inferior, punch biopsy: - Subepidermal split with eosinophils (see discussion) B. Skin, right abdomen superior, punch biopsy for DIF: - ??DIF pending - results will follow in an addendum Electronically signed by: ??Pepe Viramontes MD Verified: ??01/29/2018 ?Dermatopathologist Performed at: ??-[facility] Dept. of Pathology, [place], [place] DISCUSSION Collagen IV highlights the base of the split. 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 DIF studies will be performed in an effort to provide further evidence to support this diagnosis. CLINICAL INFORMATION Specimen Submitted: A - Skin, right abdomen, inferior, punch biopsy (1) B - Skin, right abdomen, superior, punch biopsy for DIF (1) Clinical History: 42 year old female with blistering eruption on the hands and abdomen Clinical Diagnosis: Suspected pemphigoid gestationis SPECIMEN PROCESSING A - Labeled/Fixative: Right abdomen inferior, formalin. Quantity/Size: Single, 0.4 cm. Tissue Description: Punch of white skin with a 0.3 cm blister. . SPECIMEN PROCESSING Sections/Processing: Bisected. (T1) B - Labeled/Fixative: Right abdomen superior, Reddy ?? 's transport medium. Quantity/Size: Single, 0.3 cm. Tissue Description: Punch of calvo-pink skin. Sections/Processing: Entirely submitted for DIF studies. (T1) ??sns 01/29/2018 4:27 PM EDT [facility] SPECIMEN FROM SKIN / Unknown 01/23/2018 5:22 PM EDT 01/23/2018 5:22 PM EDT SPECIMEN FROM SKIN / Unknown 01/23/2018 5:22 PM EDT 01/23/2018 5:22 PM EDT Kika Jackson MD PATHOLOGY/CYTOLOGY O RDERABLES Performing Organization Address City/[facility]/ZIP Co de Phone Number [facility] [place] [address] * Specimen to Pathology (01/23/2018 5:22 PM EDT) AP Specimen 01/23/2018 5:22 PM EDT 01/24/2018 9:45 AM EDT Narrative [facility] - 01/24/2018 9:46 AM EDT Specimen requisition ordered. ??Separate Pathology report to follow Resulting Agency Comment Spec In Lab Artur Tovar III, MD PATHOLOGY/CYTOL OGY ORDERABLES Performing Organization Address [facility]/ZIP Co de Phone Number [facility] [place] [address] documented in this encounter Visit Diagnoses Diagnosis Pemphigoid documented in this encounter Care Teams Macerator Operator Relationship Specialty Start Date End Date Ayaka Dillard APRN [address] [place] [address] PCP - General Internal Medicine 08/04/17 documented as of this encounter
--- OUTSIDE RECORDS SUMMARY | 2024-09-26 16:00 | XMS_ITS | Encounter Summary ---
Author Organization [facility] [place] [address] Care Team Providers Care Bird Keeper Name Role Phone Ayaka Dillard MARIANNA Primary Care Provider [phone] Encounter Details Date Type Department Care Team (Late st Contact Info) Description 01/22/2018 Telephone Dermatology at [facility] [address] [place] [address] Chema Alicea MD [facility] DR [address] [place] [address] Social History Tobacco Use Types Packs/Day Years [...] encounter Miscellaneous Notes * Telephone Encounter - Cassy Lewis - 01/23/2018 7:51 AM EDT All set and confirmed with patient * Telephone Encounter - Chema Alicea - 01/22/2018 9:39 PM EDT Was paged (via [facility]) by Dr. Merritt at [facility] in [facility] regarding Renee St at 9:39 PM on 01/22/18. Dr. Merritt stated that he is seeing Renee in the ED for a blistering eruption. She is a 42-yo F who is 3 days (s/p ). She reports2 month history of a rash that is [...] prednisone in the ED, along with benadryl. Dr. Merritt is concerned about the possibility of erythema multiforme or pemphigoid. He would like to arrangefor her to be evaluated in Dermatology. Explained that we would be happy to arrange follow-up for her tomorrow (01/23), tentatively scheduled at 4:30 PM. Patient to call if that time does not work for her. Chema Alicea MD, PGY-4 Resident in Dermatology [facility] documented in this encounter Plan of Treatment Not on file documented as of this encounter Visit Diagnoses Not on filedocumented in this encounter Care Teams Bird Keeper Relationship Specialty Start Date End Date Ayaka Dillard APRN [address] [place] [address] PCP - General Internal Medicine 08/04/17 documented as of this encounter
--- OUTSIDE RECORDS SUMMARY | 2024-09-26 16:01 | XMS_ITS | Encounter Summary ---
Author Organization [facility] Address [address] [place] [address] Care Team Providers Care Piping Design Specialist Name Role Phone Unknown, Provider Primary Care Provider Unava ilable Encounter Details Date Type Department Care Team (Late st Contact Info) Description 01/19/2018 Results Only [facility] [phone] Daja Silva MD [address] [place] [address] [address] [place] [address] Social History Tobacco Use Types Packs/Day Years Used Date Smoking Tobacco: Never Assessed Comments Unknown Sex and Gender Information Value Date Recorded Sex Assigned at Not on file Legal Sex Female 10:34 EDT Gender Identity Not on file Sexual Orientation Not on file documented as of this encounter Plan of Treatment Not on file documented as of this encounter Procedures Procedure Name Priority Date/Time Associated Diagnosis Comments SURGICAL PATHOLOGY Routine 01/19/2018 22 :27 EDT documented in this encounter Results * SURGICAL PATHOLOGY (01/19/2018 22:27 EDT) Pathology Report: SURGICAL PATHOLOGY REPORT Reports generated via electronic interface contain original data; however they are lacking the format of the original report. Caution should be taken when reading/interpret ing unformatted reports. Name: ? RENEE ST ? Accession #: ? [id number] ? : ? 1975 (Age: 42) ??F ? Collect Date: ? 01/19/2018 ? Location: ? [facility] ? Receive Date: ? 01/19/2018 ? Provider: DAJA SILVA MD Copy to: CRISTÓBAL GUPTA PROFESSOR OF COMMUNICATION ? Final Pathologic Diagnosis: A. FALLOPIAN TUBE, LEFT, PARTIAL RESECTION: - Portion of benign fallopian tube with intact lumen and stromal and perivascular decidual changes. B. FALLOPIAN TUBE, RIGHT, PARTIAL RESECTION: - Portion of benign fallopian tube with intact lumen and stromal decidual changes. - Walthard nests with focal cystic change. Document reviewed and electronically signed by: Manisha Montenegro MD Report ??Date: 01/24/2018 06:30 By the signature above, the attending physician certifies that he/she has personally conducted a gross and/or microscopic examination of the described specimens and rendered or confirmed the above diagnosis. Specimen(s) Received: A. ??Left fallopian tube (#1) B. ??Right fallopian tube (#2) Clinical History: Desire for sterilization Gross Description: A. ? Received in formalin labelled with proper patient identification (initials H, J) and left fallopian tube is a 5.8 cm in length fallopian tube ranging from 0.8 cm in diameter to 1.2 cm in diameter. The serosa is glistening to dusky-purple brown. The tubal fimbriae are prominent. Sections through the tube show an intact mtz-brown wall and pinpoint lumen. Welding Equipment Repairer Supervisor sections are submitted to include the entire distal end and central cross sections in A1-A3. B. ?Received in formalin labelled with proper patient identification (initials H, J) and right fallopian tube is an 8.0 cm in length fallopian tube ranging from 0.7 cm in diameter to 1.0 cm in diameter. There is a collapsed paratubal cyst present, 1.0 cm in greatest dimension. The serosa is glistening to dusky mtz-brown. Sections through the tube show an intact mtz-brown wall and pinpoint lumen. Welding Equipment Repairer Supervisor sections are submitted to include the entire distal end and central cross sections in B1 and B2. TOPHER Mix (ASCP) 01/20/2018 10:24 AM End of Report [facility] 01/19/2018 22:2 7 EDT 01/19/2018 22:27 EDT us Daja Silva MD PATHOLOGY ORDERABLES Final Res ult [facility] [address] [place] [address] documented in this encounter Visit Diagnoses Not on filedocumented in this encounter Care Teams Piping Design Specialist Relationship Specialty Start Date End Date Unknown, Provider, PCP - General 07/14/15 01/23/18 documented as of this encounter
--- OUTSIDE RECORDS SUMMARY | 2024-09-26 16:01 | XMS_ITS | Encounter Summary ---
Author Organization [facility] Address [address] [place] [address] Care Team Providers Care Field Placement Director Name Role Phone Unknown, Provider Primary Care Provider Unava ilable Encounter Details Date Type Department Care Team (Latest Contact Info) Description 01/19/2018 8:32 EDT - 01/19/2018 23:59 EDT Hospital Encounter [address] [address] Unknown, Provider, Discharge Disposition: Home or Self Care Social History Tobacco Use Types Packs/Day Years Used Date Smoking Tobacco: Never Assessed Comments Unknown Sex and Gender Information Value Date Recorded Sex Assigned at Not on file Legal Sex Female 10:34 EDT Gender Identity Not on file Sexual Orientation Not on file documented as of this encounter Discharge Disposition Disposition Code Departure Means Destination Home or Self [facility]pc documented in this encounter Plan of Treatment Not on file documented as of this encounter Visit Diagnoses Not on filedocumented in this encounter Care Teams Field Placement Director Relationship Specialty Start Date End Date Unknown, Provider, PCP - General 07/14/15 01/23/18 documented as of this encounter
--- OUTSIDE RECORDS SUMMARY | 2024-09-26 16:01 | XMS_ITS | Clinical Summary ---
Author Organization [facility] Address [address] [place] [address] Care Team Providers Care Electrocardiographic Technician Name Role Phone Ayaka Dillard CUSTOMER ACCOUNT REPRESENTATIVE Primary Care Provider [phone] Social History Tobacco Use Types Packs/Day Years Used Date Smoking Tobacco: Never Assessed Interpersonal Safety Answer Date Record ed Physically Hurt Never 06/01/2020 Verbally Threaten Not on file 06/01/2020 Comments Unknown Sex and Gender Information Value Date Recorded Sex Assigned at Not on file Legal Sex Female 10:34 EDT Gender Identity Not on file Sexual Orientation Not on file Plan of Treatment Health Maintenance Due Date Last Done Comments Hepatitis C Screen 1975 Hepatitis B Vaccine (1 of 3 - 19+ 3-dose series) 04/07 COVID-19 Vaccine ( season) 2024 Care Teams Electrocardiographic Technician Relationship Specialty Start Date End Date Ayaka Dillard NP PCP - General 01/24/18
--- OUTSIDE RECORDS SUMMARY | 2024-09-26 16:01 | XMS_ITS | Encounter Summary ---
Author Organization [facility] Address [address] [place] [address] Care Team Providers Care Processing Manager Name Role Phone Unknown, Provider Primary Care Provider Unava ilable Encounter Details Date Type Department Care Team (Late st Contact Info) Description 07/11/2015 Results Only [facility] [phone] Pia Romero MD [address] [place] [address] [place] [address] Social History Tobacco Use Types Packs/Day Years [...] Procedure Name Priority Date/Time Associated Diagnosis Comments PAP TEST- RESULT ONLY Routine 07/11/2015 0:00 EDT documented in this encounter Results * PAP TEST- RESULT ONLY (07/11/2015 0:00 EDT) Pathology Report: CYTOPATHOLOGY REPORT Reports generated via electronic interface contain original data; however they are lacking the format of the original report. Caution should be taken when reading/interpreti ng unformatted reports. Name: ? RENEE ST ? Accession #: ? [id number] ? : ? 1975 (Age: 40) ??F ?Collect Date: ? 07/11/2015 ? Location: ? [facility] ? Receive Date: ? 07/14/2015 ? Provider: PAI ROMERO MD Copy to: PRAVEENA MORA ENGINEERING OPERATOR ? Final Report SPECIMEN ADEQUACY ? Satisfactory for Evaluation - transformation zone component present GENERAL CATEGORIZATION ? Negative for Intraepithelial Lesion or Malignancy ?? Specimen/Source: ??Pap Test, Cervix/Endocervix, ThinPrep Imaging System with manual evaluation Document reviewed and electronically signed by: ? Jesse Ferrara, [place](ASCP) ? Report ??Date: 07/15/2015 16:18 HPV with Pap Test ? Date Ordered: ? 07/15/2015 ? Status: ?? Signed Out ?Date Complete: ? 07/17/2015 ? By: ??System Interface ? Date Reported: ? 07/17/2015 ? Interpretation RESULT: Negative for HPV. No E6 or E7 mRNA is detected from HPV types 16,18,31,33,35, 39,45,51,52,56,58, 59,66, and 68 by steamfitter supervisor mediated amplification. Comments Document reviewed and electronically signed by: ? System Interface ? Report date: 07/17/2015 By the signature above, the attending physician certifies that he/she has personally conducted a gross and/or microscopic examination of the described specimens and rendered or confirmed the above diagnosis. End of Report [facility] 07/11/2015 07/14/2015 us Pia Romero MD PATHOLOGY ORDERABLES Final Resu lt [facility] [address] [place] [address] documented in this encounter Visit Diagnoses Not on filedocumented in this encounter Care Teams Processing Manager Relationship Specialty Start Date End Date Unknown, Provider, PCP - General 07/14/15 01/23/18 documented as of this encounter
--- OUTSIDE RECORDS SUMMARY | 2024-09-26 16:01 | XMS_ITS | Encounter Summary ---
Author Organization [facility] [place] [address] Care Team Providers Care Wire Mesh Gate Assembler Name Role Phone Amelia Dillardyce Opla CABRAL Primary Care Provider [phone] Reason for Visit * Reason Comments Advanced Maternal Age * Consultation (Routine) - Closed Specialty Diagnoses / Procedures Referred By Contac t Referred To Contact Obstetrics and Gynecology Diagnoses AMA, GDM, FIBROMYALGIA,HTN,OBESI TY Procedures GC AND MFM CONSULT Rima Martinez, LUZ [address] [place] [address] [facility] Camouflage Assembler [address] [place] [address] Referral ID Status Reason Start Date Expiration Date Visits Re quested Visits Authorized [id number] Closed 07/23/2017 07/23/2018 2 2 Encounter Details Date Type Department Care Team (Late st Contact Info) Description 08/04/2017 10:00 AM EDT Office Visit Obstetrics [place] [address] Leena Chao, [facility] DR OBSTETRICS & [place] [address] Elderly multigravida in second trimester Social History Tobacco Use Types Packs/Day Years Used Date Smoking Tobacco: Unknown Smokeless Tobacco: Never Comments Yes Sex and Gender Information Value Date Recorded Sex Assigned at Not on file Gender Identity Not on file Sexual Orientation Not on file documented as of this encounter Progress Notes * Leena Chao, [facility] - 08/04/2017 10:00 AM EDT Genetic Counseling Note Renee St is a 42 y.o. female currently at 13w6d gestation. She was referred to the Diagnosis Program by Rima Martinez CNM. I met with Renee for a 30 minute genetic counseling visit. She was accompanied to the visit by her , Eric St. Chief Complaint Patient presents with ??? Advanced Maternal Age, 42 at DAVID A three generation pedigree was obtained and will be scanned into Renee's electronic medical record. The reported family history was otherwise unremarkable for intellectual disability, congenital anomalies, recurrent loss, or known genetic conditions that could have implications for thispregnancy. Renee is Lacey, Senegalese and Kinyarwanda, and Eric is Frisian, Senegalese, and Malay. Consanguinity was denied. Obstetric History T2 L2 SAB1 TAB0 Ectopic0 Multiple0 Live Births2 # Outcome Date GA Lbr Robbie/2nd Weight Sex Delivery Anes PTL Lv 4 Current 3 Term 05/27/02 39w0d 4.196 kg (9 lb 4 oz) M C-S scar ANGELITA 2 SAB 2000 9w0d 1 Term 08/22/99 39w0d 3.005 kg (6 lb 10 oz) M C-S scar ANGELITA Obstetric Comments Failed Patient's last menstrual period was 04/29/2017. Estimated Date of Delivery: 02/03/18 based on LMP and confirmed by ultrasound (06/19/17 = 7.1 weeks) Screening Results Test Result ?? Spinal muscular atrophy screen Not in record ??? Cystic fibrosis carrier screen Not in record ??? Thalassemia screen MCV within normal limits (84.9 fL) Assessment 1.) Genetic carrier screening: ACOG recommends offering carrier screening to all women for cystic fibrosis (CF) and spinal muscular atrophy (SMA). The carrier frequencies, incidences, clinical presentations, and autosomal recessive inheritance were discussed. Renee declined carrier screeningfor CF and SMA. 2.) Maternal age, 42, at DAVID: Renee indicated she has already decided to have the Dillwyn test. Wereviewed the association between maternal age and chromosome aneuploidy. We discussed the differences, benefits and limitations of diagnostic testing and screening, including amniocentesis, ultrasound, and cell- free DNA screening (Dillwyn). Dillwyn screens for the common trisomies: Trisomy 21 (Down syndrome), trisomy 13 and trisomy 18. The general phenotypes of these trisomies and sexchromosome aneuploidies were reviewed. Dillwyn detects approximately 99% and 97% of fetuses with Down syndrome and trisomy 18, respectively. Dillwyn has a lower detection rate for trisomy 13. For these three trisomies, the false positive rate is less than 0.1%. We discussed that the origin of the cell-free DNA is placental, and that there are rare circumstances that the placental DNA is not airport representative of the DNA. Because false positives do occur, a Dillwyn result indicating a high likelihood for an aneuploidy should be followed up with a discussion of patient specific positive predictive value and the usefulness of a karyotype. Plan: Cell-free DNA screening for trisomies 13, 18 and 21 with the Dillwyn test today. Renee optedfor screening for X, Y conditions. Renee would like to know sex. Renee will be called with results within 10 days. Following our visit, Renee had a maternal- medicine consultation with Dr. May Reyes. Please refer to her note for further details and recommendations. documented in this encounter Plan of Treatment Not on file documented as of this encounter Results * Miscellaneous Lab request (08/04/2017 12:06 PM EDT) Label Request received in lab. [facility] Blood specimen (specimen) 08/04/2017 12:06 PM EDT 08/04/2017 1:13 PM EDT Narrative Resulting Agency Comment Spec In Lab May Reyes MD LAB SEND OUT ORDER MARGARITA [facility] [place] [address] documented in this encounter Visit Diagnoses Diagnosis Elderly multigravida in second trimester documented in this encounter Care Teams Wire Mesh Gate Assembler Relationship Specialty Start Date End Date Ayaka Dillard APRN [address] [place] [address] PCP - General Internal Medicine 08/04/17 documented as of this encounter
--- OUTSIDE RECORDS SUMMARY | 2024-09-26 16:01 | XMS_ITS | Encounter Summary ---
Author Organization [facility] [place] [address] Care Team Providers Care Grid Trimmer Name Role Phone Amelia Dillardyce Opal CABRAL Primary Care Provider [phone] Reason for Visit * Reason Comments Follow-up * Consultation (Routine) - Closed Specialty Diagnoses / Procedures Referred By Contac t Referred To Contact Obstetrics and Gynecology Diagnoses AMA, GDM, FIBROMYALGIA,HTN,OBESI TY Procedures GC AND MFM CONSULT Rima Martinez, LUZ [address] [place] [address] [facility] [place] [facility] Patient Companion [address] [place] [address] Referral ID Status Reason Start Date Expiration Date Visits Re quested Visits Authorized [id number] Closed 07/23/2017 07/23/2018 2 2 Encounter Details Date Type Department Care Team (Late st Contact Info) Description 08/04/2017 11:00 AM EDT Office Visit Obstetrics [place] [address] May Day MD [facility] DR OBSTETRICS [place] [address] IUD failure, ; Elderly multigravida in second trimester Social History [...] on file documented as of this encounter Last Filed Vital Signs Vital Sign Reading [...] Mass Index 45.43 08/04/2017 9:58 AM EDT documented in this encounter Progress Notes * May Day MD - 08/04/2017 11:00 AM EDT Diagnosis/Maternal Medicine Consult Note Renee St is a 42 y.o. year old female who is at 15w1d gestation. She is seen in consultation at the request of Rima Martinez CNM for evaluation of AMA, GDM and chronic hypertension. Shewas seen today for maternal- medicine consultation, ultrasound evaluation and genetic counseling with Leena Arguello She report glucose fasting 90-107, 1 pp 100-150. On Metformin 1000mg BID Review of Systems Constitutional:feels well Movement: absent Contractions: none Leaking: None Bleeding: None Patient Active Problem List Diagnosis Date Noted ??? IUD failure, 08/04/2017 Past Medical History: Diagnosis Date ??? AMA (advanced maternal age) multigravida 35+ ??? Arthritis knee ??? Depression ??? Fibromyalgia ??? GDM (gestational diabetes mellitus) ??? HTN (hypertension) 2017 No medications prior to ??? Hypercholesterolemia ??? Infertility associated with anovulation ??? Obesity ??? Previous delivery affecting x2 Past Surgical History: Procedure Laterality Date ??? SECTION ??? SECTION Family History Problem Relation Age of Onset ??? Diabetes Father ??? Hypertension Father ??? Diabetes Sister ??? Diabetes Maternal Grandmother ??? Coronary Artery Disease Paternal Grandfather ??? Hypertension Paternal Grandfather Social History Occupational History ??? Not on file. Social History Main Topics ??? Smoking status: Unknown If Ever Smoked ??? Smokeless tobacco: Never Used ??? Alcohol use No ??? Drug use: No ??? Sexual activity: Not on file OB History Para Term AB Living 4 2 2 1 2 SAB TAB Ectopic Multiple Live Births 1 2 # Outc Date GA Lbr Robbie/2nd Wgt Sex Del Anes PTL Lv 1 Term 07/1999 39w0d 3.005 kg (6 lb 10 oz) M C-S scar Living 2 SAB 2000 9w0d 3 Term 04/2002 39w0d 4.196 kg (9 lb 4 oz) M C-S scar Living 4 Current Current Outpatient Prescriptions Medication Sig Dispense Refill ??? labetalol (NORMODYNE) 100 mg Tablet 3 ??? metFORMIN (GLUCOPHAGE) 1,000 mg Tablet Take 1,000 mg by mouth 2 times daily (with meals). ??? vitamin with [id number]-FA Tablet Take by mouth. ??? ondansetron (ZOFRAN) 4 mg Tablet Take 4 mg by mouth every 8 hours as needed for Nausea. ??? promethazine (PHENERGAN) 25 mg Tablet Take 25 mg by mouth every 6 hours as needed for Nausea. ??? PHENADOZ 25 mg Suppository 2 ??? metFORMIN (GLUCOPHAGE) 500 mg Tablet Take 1 tablet by mouth 2 times daily (with meals). 60 tablet 12 No current facility-administered medications for this visit. No Known Allergies Physical Exam BP 142/76 Pulse 83 Temp 37.1 ??C (98.7 ??F) Ht 157.5 cm (5' 2) Wt (!) 112.7 kg (248 lb 6.4oz) LMP 04/29/2017 SpO2 99% BMI 45.43 kg/m2 General: alert, well appearing, in no apparent distress HEENT: normocephalic, atraumatic Abdomen: Soft, nontender Neurologic:alert, oriented, normal speech, no focal findings or movement disorder noted Psychiatric: Affect is Appropriate. Assessment and Recommendations: 42 y.o. year old female at 14w0d weeks gestation, referred for counseling regarding . I spent 40 minutes in face to face time with the patient of which 95% was in direct counseling. She conceived with and IUD in place. The IUD was removed when the was discovered. We discussed that pregnancies conceived with an IUD in place have a higher risk for complications such a . We reviewed the risks associated with advanced maternal age including aneuploidy, pretermbirth, hypertensive disorders of , diabetes, and delivery. She met with a geneticcounselor and is planning NIPT. We discussed the option of amniocentesis and she declined. Deliveryis generally recommended by 39 weeks in women over the age of 40 years and she plans an elective repeat . We reviewed the risk associated with chronic hypertension in including growth impairment, preeclampsia, and exacerbation of hypertension. Labetalol should be continued to maintain blood pressure 140-160/90-105 to avoid maternal complications related to hypertension. I recommended starting bASA 81mg QD through 38 weeks to reduce the risk for preeclampsia. I recommended an ultrasound for growth assessment at ~32 weeks. We reviewed gestational diabetes in and the risk including macrosomia, injury, delivery and glucose and electrolyte abnormalities. These outcomes can be reduced withglucose control. She has not et started metformin stating ot was not called in for her. She is reluctant to consider insulin. I prescribed metformin 500mg BID with goal to maintain fasting < 95mg/dl and 1 hr pp < 140mg/dl or 2hr < 120mg/dl. I recommended testing starting at 32 weeks. I appreciate the opportunity to be involved in this patients care, and am available if further questions should arise. MAY DAY MD 08/13/2017 [facility] [address] [place] [address] , with copy of ultrasound report documented in this encounter Plan of Treatment Not on file documented as of this encounter Procedures Procedure Name Priority Date/Time Associated Diagnosis Comments MISCELLANEOUS LAB REQUEST Routine 08/04/2017 12:06 PM EDT Elderly multigravida in second trimester documented in this encounter Results * Miscellaneous Lab request (08/04/2017 12:06 PM EDT) Label Request received in lab. [facility] Blood specimen (specimen) 08/04/2017 12:06 PM EDT 08/04/2017 1:13 PM EDT Narrative Resulting Agency Comment Spec In Lab May Day MD LAB SEND OUT ORDER MARGARITA [facility] [place] [address] documented in this encounter Visit Diagnoses Diagnosis IUD failure, Elderly multigravida in second trimester documented in this encounter Care Teams Grid Trimmer Relationship Specialty Start Date End Date Ayaka Dillard, POOL INSTALLER [address] [place] [address] PCP - General Internal Medicine 08/04/17 documented as of this encounter
--- OUTSIDE RECORDS SUMMARY | 2024-09-26 16:01 | XMS_ITS | Referral Summary ---
Author Organization [facility] Address [address] [place] [address] Care Team Providers Care Prospecting Driller Name Role Phone Ayaka Dillard BOAT LABORER Primary Care Provider [phone] Social History Tobacco Use Types Packs/Day Years Used Date Smoking Tobacco: Never Assessed Interpersonal Safety Answer Date Record ed Physically Hurt Never 06/01/2020 Verbally Threaten Not on file 06/01/2020 Comments Unknown Sex and Gender Information Value Date Recorded Sex Assigned at Not on file Legal Sex Female 10:34 EDT Gender Identity Not on file Sexual Orientation Not on file Plan of Treatment Not on file Care Teams Prospecting Driller Relationship Specialty Start Date End Date Ayaka Dillard NP PCP - General 01/24/18
--- OUTSIDE RECORDS SUMMARY | 2024-09-26 16:01 | XMS_ITS | Encounter Summary ---
Author Organization [facility] Address [address] [place] [address] Care Team Providers Care Wheat Shipper Name Role Phone Ayaka Dillard HIGHER LEVEL TEACHING ASSISTANT Primary Care Provider [phone] Encounter Details Date Type Department Care Team (Late st Contact Info) Description 03/03/2018 Results Only [facility] [phone] Daja Silva MD [facility] [place] [address] Social History Tobacco Use Types [...] Diagnosis Comments PAP TEST- RESULT ONLY Routine 03/03/2018 0:00 EDT documented in this encounter Results * PAP TEST- RESULT ONLY (03/03/2018 0:00 EDT) Pathology Report: CYTOPATHOLOGY REPORT Reports generated via electronic interface contain original data; however they are lacking the format of the original report. Caution should be taken when reading/interpreti ng unformatted reports. Name: ? [address]EE [address] ? Accession #: ? [id number] ? : ? 1975 (Age: 42) ??F ?Collect Date: ? 03/03/2018 ? Location: ? [facility] ? Receive Date: ? 03/06/2018 ? Provider: DAJA SILVA MD Copy to: AYAKA DILLARD NP ? Final Report SPECIMEN ADEQUACY ? Satisfactory for Evaluation - transformation zone component absent GENERAL CATEGORIZATION ? Negative for Intraepithelial Lesion or Malignancy INTERPRETATION ? Shift in rylie present suggestive of bacterial vaginosis. Menstrual/Pregnanc y Status: ??Post Specimen/Source: ??Pap Test, Cervix, ThinPrep Imaging System with manual evaluation Document reviewed and electronically signed by: ? Jesse Ferrara, CHIQUITA(ASCP) ? Report ??Date: 03/13/2018 12:48 HPV with Pap Test ? Date Ordered: ? 03/13/2018 ? Status: ?? Signed Out ?Date Complete: ? 03/14/2018 ? By: ??System Interface ? Date Reported: ? 03/14/2018 ? Interpretation RESULT: Negative for HPV. No E6 or E7 mRNA is detected from HPV types 16,18,31,33,35, 39,45,51,52,56,58, 59,66, and 68 by artist blacksmith mediated amplification. Comments Document reviewed and electronically signed by: ? System Interface ? Report date: 03/14/2018 By the signature above, the attending physician certifies that he/she has personally conducted a gross and/or microscopic examination of the described specimens and rendered or confirmed the above diagnosis. End of Report [facility] 03/03/2018 03/06/2018 us Daja Silva MD PATHOLOGY ORDERABLES Final Res ult [facility] [address] [place] [address] documented in this encounter Visit Diagnoses Not on filedocumented in this encounter Care Teams Wheat Shipper Relationship Specialty Start Date End Date Ayaka Dillard, KATIA PCP - General 01/24/18 documented as of this encounter
[2024-09-26 17:44] LABS: Bilirubin Negative (Negative); Blood Negative (Negative); Clarity Clear (Clear); Glucose Negative (Negative); Ketones Negative (Negative); Leukocyte Esterase Negative (Negative); Nitrite Negative (Negative); Urobilinogen 0.2 mg/dL (Up to 0.2); pH 5.5 (5-8)
== END 2024-09-26 15:48 | disposition home or self-care (01) ==
LOC: NCHCN 15:47
PROVIDERS: PCP Family Medicine; Visit Provider Family Medicine
DX: N30.20 Other chronic cystitis without hematuria (principal); B96.29 Other Escherichia coli [E. coli] as the cause of diseases classified elsewhere; R82.89 Other abnormal findings on cytological and histological examination of urine
CPT/HCPCS: 87077; 81003; 87086; 87186

== ENCOUNTER 2025-05-22 16:46 | Outpatient (CLI) | payer OTHER, SELFPAY ==
[2025-05-22 17:16] LABS: Abs Immature Grans 0.01 10^3/uL (0.0-0.06); HCT 38.5 % (36.0-46.0); HGB 12.8 g/dL (11.2-15.7); Immature Grans % 0.2 %; MCH 29.8 pg (27.0-33.0); MCHC 33.2 % (32.0-36.0); MCV 90 fL (80-95); MPV 9.9 fL (8.0-11.0); Platelet Count 314 10^3/uL (130-400); RBC 4.30 10^6/uL (3.93-5.22); RDW 12.7 % (11.7-14.6); RDW-SD 41.7 fL; WBC 4.96 10^3/uL (4.4-10.8)
[2025-05-22 18:12] LABS: ALT 23 U/L (14-59); AST 15 U/L (15-37); Albumin 4.2 g/dL (3.4-5.0); Alkaline Phosphatase 64 U/L (46-116); Anion Gap 4.9 mmol/L (3-11); BUN 22 mg/dL (7-18); Bilirubin, Total 0.5 mg/dL (0.2-1.0); CO2 31.1 mmol/L (21.0-32.0); Calcium 9.6 mg/dL (8.5-10.1); Calculated LDL 149 mg/dL (<100); Chloride 104 mmol/L (98-107); Cholesterol 232 mg/dL (<200); Estimated GFR 77.88 (mL/min/1.73m2); Glucose 110 mg/dL (74-106); HDL Cholesterol 55 mg/dL (>or=50); Potassium 4.4 mmol/L (3.5-5.1); Sodium 140 mmol/L (136-145); Total Protein 7.5 g/dL (6.4-8.2); Triglyceride 143 mg/dL (<150); Vitamin D 25 Total 39 ng/mL (30-100)
== END 2025-05-22 16:47 | disposition home or self-care (01) ==
LOC: LBO 16:46
PROVIDERS: PCP Family Medicine; Visit Provider Family Medicine
DX: M79.7 Fibromyalgia (principal); I10 Essential (primary) hypertension; E78.5 Hyperlipidemia, unspecified
CPT/HCPCS: 36415; 80053; 80061; 82306; 85025

== ENCOUNTER 2025-10-22 14:47 | Outpatient (CLI) | payer OTHER, SELFPAY ==
--- NOTE | 2025-10-22 14:00 | DI.RAD_ITS ---
Exam(s) XR SHOULDER RT COMPLETE 2+V EXAM: XR SHOULDER RT COMPLETE 2+V CLINICAL HISTORY: RIGHT SHOULDER PAIN. TECHNIQUE: 2D digital imaging was performed of the right shoulder. Two images were obtained. Grashey and axillary views were obtained. COMPARISON: No exams were available for comparison FINDINGS: BONES: No acute fracture is present. No bony destructive lesion is seen. JOINTS: No dislocation present. The joint spaces are well maintained. SOFT TISSUE: Normal. IMPRESSION: There is no acute abnormality. DATA REPOSITORY: RADIATION DOSE DELIVERED:
== END 2025-10-22 14:48 | disposition home or self-care (01) ==
LOC: DIORS 14:47
PROVIDERS: PCP Family Medicine; Visit Provider Physician Assistant
DX: M25.511 Pain in right shoulder (principal)
CPT/HCPCS: 73030